=== PATIENT | female | born 1970 | race African-American/Black ===

== ENCOUNTER 2023-01-17 16:00 | Emergency (ER) | payer MEDICAID ==
[~2023-01-17] VITALS: Ht 162.6 cm; Wt 109.0 kg
[2023-01-17 16:17] VITALS: BP 103/58; PULSE 85; RESP 18; TEMP 98.9; O2SAT 96
== END 2023-01-17 17:21 | disposition left against medical advice (07) ==
LOC: ER 16:48
DX: R55 Syncope and collapse (principal)
CPT/HCPCS: 99283